=== PATIENT | female | born 2005 | race Caucasian/White ===

== ENCOUNTER 2024-04-10 16:26 | Emergency (ER) | payer BC, SELFPAY ==
--- NOTE | 2024-04-10 17:02 | XR_ITS ---
PROCEDURE INFORMATION: Exam: XR Left Foot Exam date and time: 04/10/2024 5:18 PM Age: 18 years old Clinical indication: Patient HX: States left ankle/foot pain since participating in horse show on Wednesday TECHNIQUE: Imaging protocol: Radiologic exam of the left foot. Views: 1 or 2 views. COMPARISON: CR Ankle L 04/10/2024 5:17 PM FINDINGS: Bones/joints: Normal. No acute fracture identified. Soft tissues: Normal. IMPRESSION: No acute findings.
--- NOTE | 2024-04-10 17:04 | XR_ITS ---
PROCEDURE INFORMATION: Exam: XR Left Ankle Exam date and time: 04/10/2024 5:17 PM Age: 18 years old Clinical indication: Patient HX: States left ankle/foot pain since participating in horse show on Wednesday TECHNIQUE: Imaging protocol: Radiologic exam of the left ankle. Views: 1 or 2 views. COMPARISON: No relevant prior studies available. FINDINGS: Bones/joints: Normal. No acute fracture identified. Soft tissues: Normal. IMPRESSION: No acute findings.
[2024-04-10 17:05] VITALS: BP 120/74; PULSE 97; RESP 17; TEMP 36.7; O2SAT 99; BMI 23.5
--- NOTE | 2024-04-10 17:50 | EXP.UTC ---
Discharge Plan Disposition Patient Disposition: Home, Self-Care Condition: Good Prescriptions Prescriptions: New ibuprofen 800 mg tablet 800 mg PO TID PRN (Reason: pain) Qty: 30 0RF Referrals Follow up/Referrals: Provider,Referral, MD [Primary Care Provider] - See instructions Clinical Impressions Clinical Impression: Extensor tendinitis of foot Instructions Patient Instructions: DI for Foot Pain Discharge ED Provider: Rafaela Barger [facility] [place] General Stated complaint: LT foot pain Mode of Arrival: Ambulatory Source of Information: Patient Limitations: No Limitations Time Seen by Provider: 04/10/24 17:49 Description of Symptoms (Recalled from Triage Doc. 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 She reports the the EMT at the event taped her foot. She states that her foot was swollen at one point and although the swelling is down her foot continues to hurt. Related Data Previous Rx's Medication Instructions Recorded ibuprofen 800 mg tablet 800 mg PO TID PRN pain #30 tabs 04/10/24 Allergies Allergy/AdvReac Type Severity Reaction Status Date / Time No Known Allergies Allergy Verified 04/10/24 17:20 Worker's Comp Is this a Worker's Comp case?: No [facility] Disclaimer: The information contained in this section may have been updated after the patient was seen, as this information can be updated by other users. Surgical History (Updated 04/10/24 @ 17:21 by Mandy Frank RN) History of removal of cyst History of hernia repair Social History Smoking Status: Never smoker alcohol intake: never current occupational status: student Travel in the last 8 weeks: Inside the [place] ROS Obtained: Yes All systems reviewed & no additional complaints except as documented Constitutional Constitutional: Reports system reviewed and no additional complaints, except as documented Eyes Eyes: Reports system reviewed and no additional complaints, except as documented ENT Ears, Nose, Mouth, and Throat: Reports system reviewed and no additional complaints, except as documented Cardiovascular Cardiovascular: Reports system reviewed and no additional complaints, except as documented Respiratory Respiratory: Reports system reviewed and no additional complaints, except as documented Gastrointestinal Gastrointestingal: Reports system reviewed and no additional complaints, except as documented Genitourinary Female Genitourinary: Reports system reviewed and no additional complaints, except as documented Musculoskeletal Musculoskeletal: Reports system reviewed and no additional complaints, except as documented Comments: foot pain on top of the foot Integumentary/Breasts Skin/Breast: Reports system reviewed and no additional complaints, except as documented Neurologic Neurologic: Reports system reviewed and no additional complaints, except as documented Endocrine Endocrine: Reports system reviewed and no additional complaints, except as documented Hematologic/Lymphatic Henatologic/Lymphatic: Reports system reviewed and no additional complaints, except as documented Allergic/Immunologic Allergic/Immunologic: Reports system reviewed and no additional complaints, except as documented Physical Exam General General appearance: alert and in no apparent distress Head Head exam: atraumatic and normocephalic Eye Eye exam: Present normal appearance ENT ENT exam: Present normal exam and normal oropharynx Neck Neck exam: Present normal inspection Chest Chest inspection: Present normal inspection and symmetric chest wall rise Respiratory Respiratory exam: Present normal lung sounds bilaterally Cardiovascular Cardiovascular exam: Present regular rate and normal rhythm Abdominal Exam Abdominal exam: Present soft Expanded Lower Extremity Exam Left: Hip/Pelvis exam: Present normal inspection Upper leg exam: Present normal inspection Knee exam: Present normal inspection Lower leg exam: Present normal inspection Ankle exam: Present normal inspection Foot/toe exam: Present tenderness Top foot image: 1. Tenderness on palpitation and flexion Neurovascular/Tendon exam: Present normal capillary refill Gait: observed and normal Back Exam Back exam: Present normal inspection Neurological Exam Neurological exam: Present alert and oriented X3 Psychiatric Psychiatric exam: Present normal affect and normal mood Skin Skin exam: Present warm, dry and intact Lymphatic Lymphatic Findings: no adenopathy Medical Decision Making Kostas Inquiry Pt receiving controlled substance: No Kostas was queried for this patient: No Vital Signs: 04/10/24 17:05 Temperature 98.1 F Temperature Source Oral Pulse Rate [Left Brachial] 97 H Respiratory Rate 17 Blood Pressure [Left Arm] 120/74 Blood Pressure Mean [Left Arm] 89 Blood Pressure Source [Left Arm] Automatic Cuff Blood Pressure Position [Left Arm] Sitting 02 Sat by Pulse Oximetry 99 Oxygen Delivery Method Room Air Orders (Tests/Meds): ORDERS Category Date Time Status Ankle XR - Left 2 Views [XR ankle LT 2V] Stat Exams 04/10/24 17:04 Taken Foot XR left 2 views [XR foot LT 2V] Stat Exams 04/10/24 17:02 Taken Radiology Data #1: Image(s): Foot/Toes Image Reviewed: Yes I reviewed the patient's radiology results FINDINGS: Bones/joints: Normal. No acute fracture identified. Soft tissues: Normal. IMPRESSION: No acute findings. #2: Image(s): Ankle Image Reviewed: Yes I reviewed the patient's radiology results FINDINGS: Bones/joints: Normal. No acute fracture identified. Soft tissues: Normal. IMPRESSION: No acute findings. Procedures Miscellaneous Procedure Procedure Performed: left foot yulia wrapped
[2024-04-10 18:21] VITALS: BP 120/74; PULSE 97; RESP 17; TEMP 36.7; O2SAT 99
== END 2024-04-10 18:24 | disposition home or self-care (01) ==
PROVIDERS: Emergency Provider Nurse Practitioner Family
DX: M79.672 Pain in left foot (principal); M77.52 Other enthesopathy of left foot and ankle; X50.0XXA Overexertion from strenuous movement or load, initial encounter
CPT/HCPCS: 73600; 73620; 99204; 99212; G0463